=== PATIENT | female | born 1985 | race African-American/Black ===

== ENCOUNTER 2016-08-03 10:24 | Emergency (ER) | payer MEDICAID, OTHER ==
[~2016-08-03] VITALS: Ht 175.3 cm; Wt 69.4 kg
[~2016-08-03 10:24] MED LIST: FOLI-17 PO; MULT-750 PO; THIA100T6 PO
[2016-08-03] MEDS ORDERED: SODIUM CHLORIDE 0.9% 1,000 ML IV ONE (10:58)
[2016-08-03] MEDS ORDERED: SODIUM CHLORIDE FLUSH 10ML SYR IVF ONE (11:00)
[2016-08-03] MEDS ORDERED: ONDANSETRON 2MG/ML, 2ML IVPush ONE (11:00)
[2016-08-03] MEDS ORDERED: FAMOTIDINE 20 MG/2 ML IVP ONE (11:00)
[2016-08-03] MEDS ORDERED: SODIUM CHLORIDE 0.9% 1,000ML IVBOLUS ONE ×2 (11:00→13:30)
[2016-08-03] MEDS ORDERED: HYDROmorphone 1 MG/ML, 1ML ONE ×2 (11:11→13:02)
[2016-08-03] MEDS ORDERED: FAMOTIDINE 20 MG/2 ML ONE (11:11)
[2016-08-03] MEDS ORDERED: ONDANSETRON 2MG/ML, 2ML ONE (11:11)
[2016-08-03 11:43] LABS: ASPARTATE AMINO TRANSFERASE 59 U/L (15-37); BLOOD UREA NITROGEN 12 mg/dL (7-18)
[2016-08-03] MEDS: HYDROmorphone 1 MG/ML, 1ML IVPush PRN ×2 (11:47→13:03)
[2016-08-03 13:53] VITALS: BP_DIAS 72
[2016-08-03] MEDS ORDERED: OMNIPAQUE 350 MG/ML, 100ML BOTTLE ONE (14:04)
[2016-08-03 15:31] VITALS: BP_SYST 128
== END 2016-08-03 15:33 | disposition home or self-care (01) ==
LOC: ED 12:24
DX: N30.00 Acute cystitis without hematuria (principal); R10.13 Epigastric pain; E86.0 Dehydration; F10.10 Alcohol abuse, uncomplicated; F17.210 Nicotine dependence, cigarettes, uncomplicated
CPT/HCPCS: 36415; 74022; 74177; 76700; 80053; 81001; 83690; 84703; 85025; 87086; 93005; 96361; 96374; 96375; 96376; 99285; J1170; J2405; J7030; Q9967; S0028